=== PATIENT | female | born 1990 | race Caucasian/White ===

== ENCOUNTER → 2016-06-16 | Outpatient (REF) | payer MEDICAID, OTHER ==
[~2016-06-16] MED LIST: ACET500C PO; BISA10SU4 PR; CALC-190 PO; CALCTAB28 PO; CEFD1CAP8 PO; CELE20TA PO; CEPH500C PO; CHLO1.4S2 MT; CITR1SOL PO; CRAN500C2 PO; CYCL10TA PO; DITR1TAB PO; DULC5TAB PO; FLEEENE4 PR; GABA-283 PO; GABA600T PO; IBUP200C PO; KEFL500C7 PO; LEVO25TA5 PO; LORC1TAB PO; LORT1TAB PO; LOVE0.6I2 SC; LOVE0.8I SC; MAALSUS18 PO; MACR100C3 PO; MICR10CA PO; MILKSUS PO; MIRA3350 PO; MIRA33504 PO; MULTTAB63 PO; NAPR220C PO; NORCOTAB PO; NYST100024 TOP; PREN1TAB11 PO; PROT1TAB2 PO; SENO8.6T10 PO; SERO1TAB3 PO; TRAZ150T14 PO; TRAZ50TA4 PO; VALI10TA PO; VITA200016 PO; XARE15TA PO; ZANA4CAP PO; ZOFR20TA PO; [UNRECOGNIZED DRUG - OTHER] PO
== END ==
LOC: M SMT 16:54
PROVIDERS: ATTEND Urology
DX: N39.0 Urinary tract infection, site not specified (principal)

== ENCOUNTER → 2016-08-13 | Outpatient (REF) | payer MEDICAID ==
[2016-08-13 20:15] LABS: YEAST LIKE CELL URINE AUTO SMALL
== END ==
LOC: M SMT 17:02
PROVIDERS: ATTEND Urology
DX: N39.0 Urinary tract infection, site not specified (principal)

== ENCOUNTER → 2016-08-28 | Outpatient (CLI) | payer MEDICAID ==
--- NOTE | 2016-08-28 12:37 | REP ---
MRI LEFT KNEE: TECHNIQUE: Axial proton density fat saturation, sagittal proton density T2 STIR, water excitation, coronal proton density, proton density fat saturation. The menisci are intact. There is no evidence of a meniscal tear. The cruciate and collateral ligaments are intact. The extensor mechanism is intact. There is mild fluid and edema anterior to the patella lateral aspect, which may represent mild prepatellar bursitis. No osteochondral defects are seen. There is normal marrow signal with no bone marrow edema or occult fracture. There is a small joint effusion. There is no evidence of a popliteal cyst. IMPRESSION: No evidence of meniscal tear or ligament tear. Possible mild prepatellar bursitis. Small joint effusion. No occult fracture. Signed by Hardik Ryan MD 08/28/2016 05:19 P
== END ==
LOC: M PLARAD 09:43
PROVIDERS: ATTEND Physician Assistant
DX: M25.562 Pain in left knee (principal)

== ENCOUNTER 2016-10-02 09:38 | Emergency (ER) | payer MEDICAID, SELFPAY ==
[~2016-10-02] VITALS: Ht 162.6 cm; Wt 90.7 kg
[2016-10-02] MEDS ORDERED: XARE20TA PO (09:56)
[2016-10-02] MEDS ORDERED: DITR5TAB PO (09:56)
[2016-10-02] MEDS ORDERED: TOPA50TA7 PO (09:56)
[2016-10-02] MEDS ORDERED: TIZA4CAP3 PO (09:56)
[2016-10-02] MEDS ORDERED: FLUO20CA8 PO (09:56)
[2016-10-02] MEDS ORDERED: ACETAMINOPHEN TAB 650MG DOSE (2X325MG) PO ONE (11:00)
[2016-10-02 12:56] VITALS: BP 122/70
[2016-10-03] MEDS ORDERED: OXYB5TA PO (17:18)
[2016-10-03] MEDS ORDERED: VITMTA PO (17:18)
[2016-10-03] MEDS ORDERED: MAGN400T5 PO (17:18)
[2016-10-03] MEDS ORDERED: ZYRT10TA2 PO (17:18)
[2016-10-03] MEDS ORDERED: LEVO50TA5 PO (17:18)
[2016-10-03] MEDS ORDERED: ACET500T37 PO (17:18)
[2016-10-03] MEDS ORDERED: GABA600T PO (17:18)
== END 2016-10-02 17:06 | disposition home or self-care (01) ==
LOC: EDBD 09:38 → M ED 10:38
DX: R51 Headache (principal); G82.20 Paraplegia, unspecified; E03.9 Hypothyroidism, unspecified; F32.9 Major depressive disorder, single episode, unspecified; M62.830 Muscle spasm of back; Z79.899 Other long term (current) drug therapy; Z79.01 Long term (current) use of anticoagulants; F17.210 Nicotine dependence, cigarettes, uncomplicated; Z86.73 Personal history of transient ischemic attack (TIA), and cerebral infarction without residual deficits; Z86.711 Personal history of pulmonary embolism; Z87.440 Personal history of urinary (tract) infections; Z87.42 Personal history of other diseases of the female genital tract

== ENCOUNTER 2016-10-03 16:14 | Inpatient (IN) | payer MEDICAID, SELFPAY ==
[~2016-10-03 16:14] MED LIST changes: +DITR5TAB PO; +FLUO20CA8 PO; +TIZA4CAP3 PO; +TOPA50TA7 PO; +XARE20TA PO
[2016-10-03] MEDS ORDERED: OXYB5TA PO (17:18)
[2016-10-03] MEDS ORDERED: VITMTA PO (17:18)
[2016-10-03] MEDS ORDERED: GABA600T PO (17:18)
[2016-10-03] MEDS ORDERED: ACET500T37 PO (17:18)
[2016-10-03] MEDS ORDERED: LEVO50TA5 PO (17:18)
[2016-10-03] MEDS ORDERED: MAGN400T5 PO (17:18)
[2016-10-03] MEDS ORDERED: ZYRT10TA2 PO (17:18)
[2016-10-03 17:27] LABS: BASO # 0.1 K/mm3 (0.0-0.2); BASO % 0.8 % (0.0-1.0); EOS # 0.2 K/mm3 (0.0-0.50); EOS % 2.7 % (0.0-3.0); LARGE UNSTAINED CELL # 0.1 K/mm3 (0.0-0.4); LARGE UNSTAINED CELL % 1.3 % (0.0-4.0); LYMPH # 2.6 K/mm3 (1.5-6.5); LYMPH % 27.6 % (24.0-44.0); MEAN CORPUSCULAR HEMOGLOBIN 24.7 pg (27.0-33.0); MEAN CORPUSCULAR HGB CONC 32.1 g/dl (32.0-36.5); MONO # 0.4 K/mm3 (0.0-0.8); MONO % 4.7 % (0.0-5.0); NEUTROPHILS # 5.9 K/mm3 (1.8-7.7); NEUTROPHILS % 62.9 % (36.0-66.0); PLATELET COUNT, AUTOMATED 361 k/mm3 (150-450); RED CELL DISTRIBUTION WIDTH 16.8 % (11.5-14.5); WHITE BLOOD COUNT 9.3 K/mm3 (4.0-10.0)
[2016-10-03 17:54] LABS: ANION GAP 9 MEQ/L (8-16); BLOOD UREA NITROGEN 14 MG/DL (7-18); CALCIUM LEVEL 8.8 MG/DL (8.5-10.1); CARBON DIOXIDE LEVEL 21 MEQ/L (21-32); CHLORIDE LEVEL 110 MEQ/L (98-107); CREATININE FOR GFR 0.63 MG/DL (0.55-1.02); GLOMERULAR FILTRATION RATE > 60.0 (>60); GLUCOSE, FASTING 94 MG/DL (70-105); POTASSIUM SERUM 3.6 MEQ/L (3.5-5.1); SODIUM LEVEL 140 MEQ/L (136-145)
[2016-10-03] MEDS ORDERED: MIRALAX *UNIT DOSE* 17GM PACKET PO PRN (18:45)
[2016-10-03] MEDS ORDERED: ACETAMINOPHEN TAB 650MG DOSE (2X325MG) PO PRN (18:45)
[2016-10-03] MEDS ORDERED: ONDANSETRON 4MG/2ML VIAL (J2405) IV PRN (18:45)
--- NOTE | 2016-10-03 19:14 | HPEPDOC ---
General Date of Admission 10/03/16 Primary Care Physician: LILIA RODRIGUEZ MD Attending Physician: KEVYN AMAYA MD Chief Complaint The patient is a 26-year-old female admitted with a reason for visit of Unable To Care For Self. 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 The patient states that she has been for 3 years and has an 11 month old son with her . 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 However, the patient's from the patient 3 days ago. During this time, the patient states that she has not been able to care for herself. At baseline, the patient states that she transfers with a Susan lift, and is dependent on her for all of her activities of daily living. At this time, the patient denies any acute complaints of fevers, chills, shortness of breath, chest pain, palpitations, abdominal pain, or any nausea/vomiting/diarrhea. The patient will be admitted to the hospitalist service under Dr. Amaya, and a consultation will be placed to [facility] for further delineation of disposition. Home Medications Scheduled Cetirizine HCl (Zyrtec Allergy) 10 Mg Tab, 10 MG PO QHS, (Reported) Diazepam (Valium) 10 Mg Tab, 10 MG PO QHS, (Reported) Fluoxetine Hcl (Fluoxetine) 20 Mg Cap, 20 MG PO DAILY, (Reported) Gabapentin (Gabapentin) 600 Mg Tab, 600 MG PO BID, (Reported) Levothyroxine Sodium (Synthroid) 50 Mcg Tab, 50 MCG PO DAILY, (Reported) Magnesium Oxide (Magnesium Oxide 400) 400 Mg Tab, 400 MG PO QHS, (Reported) Multivitamins *[facility] STOCKED* (Thera M Plus *[facility] STOCKED*) 1 Tab Tab, 1 TAB PO DAILY, (Reported) Oxybutynin Chloride (Oxybutynin Chloride) 5 Mg Tab, 5 MG PO BID, (Reported) Rivaroxaban (Xarelto) 20 Mg Tab, 20 MG PO QHS, (Reported) Tizanidine Hydrochloride (Tizanidine HCl) 4 Mg Cap, 4 MG PO BID, (Reported) Topiramate (Topamax) 50 Mg Tab, 75 MG PO QHS, (Reported) Scheduled PRN Acetaminophen (Acetaminophen Extra Stren) 500 Mg Tab, 500 MG PO Q4H PRN for PAIN , (Reported) Polyethylene Glycol (Miralax) 1 Pow Pow, 17 GM PO DAILY PRN for CONSTIPATION, ( Reported) Allergies Coded Allergies: Gadobenate (Verified Allergy, Severe, shortness of breath, 10/03/16) Nitrofurantoin (Verified Allergy, Unknown, MACROBID, 10/03/16) Past Medical History Medical History As noted in HPI. Surgical History Tonsillectomy in 2012, PEG tube insertion and tracheostomy in 2011 with subsequent reversal, suprapubic catheter insertion Family History Significant Family History: No pertinent family hx Social History * Smoker: Denies Alcohol: Denies Drugs: denies Review of Symptoms Other systems 10 point review of systems negative unless otherwise specified in HPI. Physical Examination General Exam: Positive: Alert, Cooperative, No Acute Distress ENT Exam: Positive: Atraumatic, Mucous membr. moist/pink Neck Exam: Positive: Other (previous tracheostomy scar noted in the midline of the neck), Negative: JVD Chest Exam: Positive: Clear to auscultation, Normal air movement Heart Exam: Positive: Rate Normal, Normal S1, Normal S2 Telemetry: Positive: Sinus Abdomen Exam: Positive: Soft, Other (+ suprapubic catheter), Negative: Tenderness Extremity Exam: Negative: Tenderness, Swelling Neuro Exam: Positive: Other (bilateral upper extremities with intact sensation and strength. patient with intact sensation in the lower extremities bilaterally. However, patient has 0 out of 5 strength upon flexion/extension of the hip, knee, and ankle joints. The patient is able to wiggle her toes slightly on command) Psych Exam: Positive: Oriented x 3 Vital Signs Vital Signs Date Time Temp Pulse Resp B/P (MAP) Pulse Ox O2 Delivery O2 Flow Rate FiO2 10/03/16 16:47 10/03/16 16:25 98.3 76 18 96 Room Air Laboratory Data Labs 24H Laboratory Tests 2 10/03/16 17:13: White Blood Count 9.3, Red Blood Count 5.49H, Hemoglobin 13.5, Hematocrit 42.2, Mean Corpuscular Volume 77.0L, Mean Corpuscular Hemoglobin 24.7L, Mean Corpuscular Hemoglobin Concent 32.1, Red Cell Distribution Width 16.8H, Platelet Count 361, Neutrophils (%) (Auto) 62.9, Lymphocytes (%) (Auto) 27.6, Monocytes (%) (Auto) 4.7, Eosinophils (%) (Auto) 2.7, Basophils (%) (Auto) 0.8, Neutrophils # (Auto) 5.9, Lymphocytes # (Auto) 2.6, Monocytes # (Auto) 0.4, Eosinophils # (Auto) 0.2, Basophils # (Auto) 0.1, Large Unclassified Cells % 1.3 , Large Unclassified Cells # 0.1, Anion Gap 9, Glomerular Filtration Rate > 60.0 , Blood Urea Nitrogen 14, Creatinine 0.63, Sodium Level 140, Potassium Level 3.6 , Chloride Level 110H, Carbon Dioxide Level 21, Calcium Level 8.8 CBC/BMP Laboratory Tests 10/03/16 17:13 Red Blood Count 5.49 H, Mean Corpuscular Volume 77.0 L, Mean Corpuscular Hemoglobin 24.7 L, Mean Corpuscular Hemoglobin Concent 32.1, Red Cell Distribution Width 16.8 H, Neutrophils (%) (Auto) 62.9, Lymphocytes (%) (Auto) 27.6, Monocytes (%) (Auto) 4.7, Eosinophils (%) (Auto) 2.7, Basophils (%) (Auto ) 0.8, Neutrophils # (Auto) 5.9, Lymphocytes # (Auto) 2.6, Monocytes # (Auto) 0.4, Eosinophils # (Auto) 0.2, Basophils # (Auto) 0.1, Calcium Level 8.8 Plan / VTE VTE Prophylaxis Ordered?: Yes Plan Plan Social admission for possible placement The patient states that she has been unable to take care of herself since being from her a few days ago. Physical therapy consulted I have placed a consultation for PFS for further delineation of disposition History of Sagittal Sinus Thrombosis in 2011 Patient with residual lower extremity weakness, status post tracheostomy and PEG tube placement with subsequent reversal in 2011 The patient has had an outpatient and inpatient (Here in 2014) work up for hypercoagulable disorders but this has come up negative according to the patient and our records here On Xarelto for Anticoagulation Hx of Pulmonary Embolism/DVT in 2015 on Xarelto Urinary Retention s/p Suprapubic Mc Catheter Follows with Dr. Orozco of Urology as an outpatient, has qMonthly catheter changes--last changed approximately 10 days ago according to the patient Reports no functional issues with the catheter at this time Bipolar disorder, stable Cont Fluoxetine Hypothyroidism Continue supplementation Obesity Complicating medical care Constipation Cont Miralax prn daily DVT prophylaxis Already on anticoagulation The patient will be admitted under the service of Dr. Amaya, who will begin to follow the patient on 10/04/16 @ 7 am. KAE SANTILLAN MD Oct 03, 2016 19:14
[2016-10-03 19:47] VITALS: BP 109/73
[2016-10-03] MEDS: diazePAM 10 MG TAB PO SCH (20:54)
[2016-10-03] MEDS: CETIRIZINE (ZyrTEC) 10 MG TAB PO SCH (20:54)
[2016-10-03] MEDS: RIVAROXABAN 20 MG TAB (XARELTO) PO SCH (20:55)
[2016-10-03] MEDS: MAGNESIUM OXIDE 400 MG TAB (MAG-OX) PO SCH (20:55)
[2016-10-03] MEDS: TOPIRAMATE (TopAMAX) 25 MG TAB PO SCH (20:55)
[2016-10-03] MEDS: oxyBUTYnin 5 MG TAB PO SCH (20:55)
[2016-10-03] MEDS: tiZANidine 4 MG TAB PO SCH (20:55)
[2016-10-03] MEDS: GABAPENTIN 300 MG CAP PO SCH (20:55)
[2016-10-04] MEDS: LEVOTHYROXINE 50MCG TABLET (0.05MG) PO SCH (05:35)
[2016-10-04 06:00] VITALS: BP 99/64
[2016-10-04] MEDS: tiZANidine 4 MG TAB PO SCH ×2 (09:45→21:23)
[2016-10-04] MEDS: GABAPENTIN 300 MG CAP PO SCH ×2 (09:45→21:23)
[2016-10-04] MEDS: oxyBUTYnin 5 MG TAB PO SCH ×2 (09:45→21:23)
[2016-10-04] MEDS: FLUoxetine 20 MG CAP PO SCH (09:45)
[2016-10-04] MEDS: MULTIVITAMINS/MINERALS THERAP 1 TAB PO SCH (09:45)
--- NOTE | 2016-10-04 09:54 | IPNPDOC ---
Date Seen The patient was seen on 10/04/16. Progress Note SUBJECTIVE: Patient does not offer any complaints today. She is stoic about her social situation. She is from [place] and has all her family there and would eventually like to move there. However right now wants to stay here as there will be issues with custody for her infant who is now with her in [place]. Her has family in [facility]. PHYSICAL EXAMINATION: VITAL SIGNS: Please see below. GENERAL: Patient awake , alert oriented times three, no acute distress. HEENT: normo cephalic, atraumatic, moist mucous membranes, anicteric eyes. CARDIOVASCULAR: S1, S2 regular, rate normal , no rub , murmur or gallop. . RESPIRATORY: clear to auscultation , bilateral symmetrical vesicular breath sounds. ABDOMINAL: obese, soft nontender, bowel sounds normal. EXTREMITIES: no edema. NEUROLOGICAL: paraplegia LABORATORY DATA: Please see below. MICROBIOLOGY: Please see below. ASSESSMENT AND PLAN: Social admission for possible placement Patient is paraplegic and wheelchair bound , left her alone in their house 4 days ago and took her car and their son. It was her only means of transportation. He was her primary caregiver and there is no family around here to help. She cant manage by herself alone so will possibly need placement or home services. will consult PFS. History of Sagittal Sinus Thrombosis in 2011 Patient with paraplegia and suprapubic catheter. History of tracheostomy and PEG tube placement with subsequent reversal in 2011 The patient has had an outpatient and inpatient (Here in 2014) work up for hypercoagulable disorders but this has come up negative according to the patient and our records here On Xarelto for Anticoagulation Hx of Pulmonary Embolism/DVT in 2014 on Xarelto Urinary Retention s/p Suprapubic Mc Catheter Follows with Dr. Orozco of Urology as an outpatient, has qMonthly catheter changes--last changed approximately 10 days ago according to the patient Reports no functional issues with the catheter at this time Bipolar disorder, stable Cont Fluoxetine Hypothyroidism Continue supplementation Obesity Complicating medical care Constipation Cont Miralax prn daily DVT prophylaxis Already on anticoagulation VS, I&O, 24H, Fishbone Vital Signs/I&O Vital Signs Date Time Temp Pulse Resp B/P (MAP) Pulse Ox O2 Delivery O2 Flow Rate FiO2 10/04/16 06:00 97.2 62 18 99/64 (76) 95 Room Air I&O- Last 24 Hours up to 6 AM 10/04/16 06:00 Intake Total 0 ml Output Total 875 ml Balance -875 ml Laboratory Data 24H LABS Laboratory Tests 2 10/03/16 17:13: White Blood Count 9.3, Red Blood Count 5.49H, Hemoglobin 13.5, Hematocrit 42.2, Mean Corpuscular Volume 77.0L, Mean Corpuscular Hemoglobin 24.7L, Mean Corpuscular Hemoglobin Concent 32.1, Red Cell Distribution Width 16.8H, Platelet Count 361, Neutrophils (%) (Auto) 62.9, Lymphocytes (%) (Auto) 27.6, Monocytes (%) (Auto) 4.7, Eosinophils (%) (Auto) 2.7, Basophils (%) (Auto) 0.8, Neutrophils # (Auto) 5.9, Lymphocytes # (Auto) 2.6, Monocytes # (Auto) 0.4, Eosinophils # (Auto) 0.2, Basophils # (Auto) 0.1, Large Unclassified Cells % 1.3 , Large Unclassified Cells # 0.1, Anion Gap 9, Glomerular Filtration Rate > 60.0 , Blood Urea Nitrogen 14, Creatinine 0.63, Sodium Level 140, Potassium Level 3.6 , Chloride Level 110H, Carbon Dioxide Level 21, Calcium Level 8.8 CBC/BMP Laboratory Tests 10/03/16 17:13 Red Blood Count 5.49 H, Mean Corpuscular Volume 77.0 L, Mean Corpuscular Hemoglobin 24.7 L, Mean Corpuscular Hemoglobin Concent 32.1, Red Cell Distribution Width 16.8 H, Neutrophils (%) (Auto) 62.9, Lymphocytes (%) (Auto) 27.6, Monocytes (%) (Auto) 4.7, Eosinophils (%) (Auto) 2.7, Basophils (%) (Auto ) 0.8, Neutrophils # (Auto) 5.9, Lymphocytes # (Auto) 2.6, Monocytes # (Auto) 0.4, Eosinophils # (Auto) 0.2, Basophils # (Auto) 0.1, Calcium Level 8.8 KEVYN SCHAFFER MD Oct 04, 2016 09:54
[2016-10-04 14:00] VITALS: BP 106/67
[2016-10-04] MEDS: IBUPROFEN 800 MG TAB PO PRN (16:42)
[2016-10-04] MEDS: LIDOCAINE 5% (LIDODERM) PATCH TD SCH (16:43)
[2016-10-04] MEDS: **NOTE PATIENT COMMENT** MISC XX SCH (21:00)
[2016-10-04] MEDS: diazePAM 10 MG TAB PO SCH (21:23)
[2016-10-04] MEDS: RIVAROXABAN 20 MG TAB (XARELTO) PO SCH (21:23)
[2016-10-04] MEDS: TOPIRAMATE (TopAMAX) 25 MG TAB PO SCH (21:23)
[2016-10-04] MEDS: CETIRIZINE (ZyrTEC) 10 MG TAB PO SCH (21:23)
[2016-10-04] MEDS: MAGNESIUM OXIDE 400 MG TAB (MAG-OX) PO SCH (21:23)
[2016-10-04 21:36] VITALS: BP 102/58
[2016-10-05] MEDS: LEVOTHYROXINE 50MCG TABLET (0.05MG) PO SCH (05:39)
[2016-10-05 06:00] VITALS: BP 93/60
[2016-10-05] MEDS: GABAPENTIN 300 MG CAP PO SCH ×2 (08:23→22:43)
[2016-10-05] MEDS: MULTIVITAMINS/MINERALS THERAP 1 TAB PO SCH (08:23)
[2016-10-05] MEDS: FLUoxetine 20 MG CAP PO SCH (08:23)
[2016-10-05] MEDS: tiZANidine 4 MG TAB PO SCH ×2 (08:23→22:43)
[2016-10-05] MEDS: oxyBUTYnin 5 MG TAB PO SCH ×2 (08:23→22:43)
[2016-10-05] MEDS: LIDOCAINE 5% (LIDODERM) PATCH TD SCH (08:24)
[2016-10-05 12:59] LABS: MEAN CORPUSCULAR HEMOGLOBIN 25.3 pg (27.0-33.0); MEAN CORPUSCULAR HGB CONC 32.7 g/dl (32.0-36.5); MEAN CORPUSCULAR VOLUME 77.2 fl (80.0-96.0); RED CELL DISTRIBUTION WIDTH 16.6 % (11.5-14.5); WHITE BLOOD COUNT 8.6 K/mm3 (4.0-10.0)
[2016-10-05 14:00] VITALS: BP 113/69
[2016-10-05 14:33] LABS: ANION GAP 9 MEQ/L (8-16); BLOOD UREA NITROGEN 13 MG/DL (7-18); CALCIUM LEVEL 9.1 MG/DL (8.5-10.1); CARBON DIOXIDE LEVEL 22 MEQ/L (21-32); CHLORIDE LEVEL 110 MEQ/L (98-107); CREATININE FOR GFR 0.66 MG/DL (0.55-1.02); GLOMERULAR FILTRATION RATE > 60.0 (>60); GLUCOSE, FASTING 85 MG/DL (70-105); POTASSIUM SERUM 3.9 MEQ/L (3.5-5.1); SODIUM LEVEL 141 MEQ/L (136-145)
[2016-10-05] MEDS: IBUPROFEN 800 MG TAB PO PRN (17:10)
[2016-10-05] MEDS: **NOTE PATIENT COMMENT** MISC XX SCH (21:00)
[2016-10-05] MEDS: TOPIRAMATE (TopAMAX) 25 MG TAB PO SCH (22:43)
[2016-10-05] MEDS: CETIRIZINE (ZyrTEC) 10 MG TAB PO SCH (22:43)
[2016-10-05] MEDS: RIVAROXABAN 20 MG TAB (XARELTO) PO SCH (22:43)
[2016-10-05] MEDS: diazePAM 10 MG TAB PO SCH (22:43)
[2016-10-05] MEDS: MAGNESIUM OXIDE 400 MG TAB (MAG-OX) PO SCH (22:43)
[2016-10-06] MEDS: LEVOTHYROXINE 50MCG TABLET (0.05MG) PO SCH (05:36)
[2016-10-06] MEDS: GABAPENTIN 300 MG CAP PO SCH ×2 (08:25→20:29)
[2016-10-06] MEDS: FLUoxetine 20 MG CAP PO SCH (08:26)
[2016-10-06] MEDS: oxyBUTYnin 5 MG TAB PO SCH ×2 (08:26→20:29)
[2016-10-06] MEDS: MULTIVITAMINS/MINERALS THERAP 1 TAB PO SCH (08:26)
[2016-10-06] MEDS: tiZANidine 4 MG TAB PO SCH ×2 (08:26→20:28)
[2016-10-06] MEDS: LIDOCAINE 5% (LIDODERM) PATCH TD SCH (08:27)
[2016-10-06] MEDS ORDERED: LIDO5TD TD (16:55)
[2016-10-06] MEDS: diazePAM 10 MG TAB PO SCH (20:28)
[2016-10-06] MEDS: CETIRIZINE (ZyrTEC) 10 MG TAB PO SCH (20:28)
[2016-10-06] MEDS: TOPIRAMATE (TopAMAX) 25 MG TAB PO SCH (20:29)
[2016-10-06] MEDS: RIVAROXABAN 20 MG TAB (XARELTO) PO SCH (20:29)
[2016-10-06] MEDS: MAGNESIUM OXIDE 400 MG TAB (MAG-OX) PO SCH (20:29)
[2016-10-06] MEDS: **NOTE PATIENT COMMENT** MISC XX SCH (20:32)
[2016-10-07] MEDS: LEVOTHYROXINE 50MCG TABLET (0.05MG) PO SCH (05:46)
[2016-10-07 06:00] VITALS: BP 117/63
[2016-10-07] MEDS: tiZANidine 4 MG TAB PO SCH (08:38)
[2016-10-07] MEDS: GABAPENTIN 300 MG CAP PO SCH (08:38)
[2016-10-07] MEDS: MULTIVITAMINS/MINERALS THERAP 1 TAB PO SCH (08:39)
[2016-10-07] MEDS: FLUoxetine 20 MG CAP PO SCH (08:39)
[2016-10-07] MEDS: oxyBUTYnin 5 MG TAB PO SCH (08:39)
[2016-10-07] MEDS: LIDOCAINE 5% (LIDODERM) PATCH TD SCH (08:39)
--- NOTE | 2016-10-09 12:04 | DSES ---
DATE OF ADMISSION: 10/03/2016 DATE OF DISCHARGE: 10/07/2016 PRIMARY CARE PROVIDER: Claire Murcia. DISCHARGE DIAGNOSES: 1. Paraplegia, wheelchair bound, unable to take care of self at home. 2. Poor social situation. 3. History of sagittal sinus thrombosis in 2011, resulting in paraplegia. 4. Chronic urinary retention, now has a suprapubic catheter. 5. History of pulmonary embolism and deep venous thrombosis (DVT) in 2014, on Xarelto. 6. Bipolar disorder. 7. Hypothyroidism. 8. Obesity. 9. Chronic constipation. DISCHARGE MEDICATIONS: - Tylenol 500 mg by mouth every four hours as needed for pain - cetirizine 10 mg at bedtime - diazepam 10 mg at bedtime - fluoxetine 20 mg by mouth daily - gabapentin 600 mg by mouth twice a day - Synthroid 50 mcg by mouth daily - magnesium oxide 400 mg at bedtime - multivitamin one tablet by mouth daily - oxybutynin 5 mg by mouth twice a day - MiraLAX one packet as needed for constipation - Xarelto 20 mg at bedtime - tizanidine 4 mg by mouth twice a day - Topamax 75 mg by mouth at bedtime - lidocaine patch one patch daily on the knee HOSPITAL COURSE: This is a 26-year-old female who has paraplegia and is wheelchair bound due to sagittal sinus thrombosis in 2011, whose who was the primary vp care management, recently left her and took her [id number] son with him, leaving the patient alone at home. Also taking the patient's car with him. The patient was home bound without any means of transportation and unable to take care of herself, so presented to the hospital for her poor social situation. The patient is originally from [place] and her family lives there. She does not have any social support system in this area, so the patient was admitted to the hospital for placement in long-term care. The patient did not have any acute events during the hospitalization. The patient's blood work was all within normal limits. The patient was seen by patient and family services and subsequently the patient was accepted in a long-term care facility in [place]. On the day of discharge, the patient's vitals were stable. The patient did not have any complaints and was functioning at her baseline. PHYSICAL EXAMINATION: VITAL SIGNS: Temperature 97.9, pulse 72, respiratory rate 18, blood pressure 117/63, pulse oximetry 95% on room air. GENERAL: Patient awake, alert, oriented times three. Lying down in bed in no acute distress. HEENT: Normocephalic, atraumatic. Moist mucous membranes. Anicteric eyes. CHEST: Clear to auscultation. CARDIOVASCULAR: S1, S2. Regular. No rub, murmur or gallop. ABDOMEN: Obese, soft, nontender. Bowel sounds present. There is a suprapubic catheter present. EXTREMITIES: No edema. NEUROLOGIC: There is paraplegia present. LABORATORY DATA: WBC 8.6, hemoglobin 12.9, platelets 312. Sodium 141, potassium 3.9, chloride 110, bicarbonate 22, BUN 13, creatinine 0.6, glucose 85, calcium 9.1. DISPOSITION: The patient is discharged to [facility] in [place]. DISCHARGE INSTRUCTIONS: Patient to followup with the doctor at the skilled nursing. Regular diet. Activity as tolerated.
== END 2016-10-07 12:32 | DRG 40 ==
LOC: M ED 17:06 → EEVIPCON 18:34 → M MSPAV 18:34 → M ED 19:47 → M MSPAV 10-05 14:50
PROVIDERS: ADMIT Internal Medicine; ATTEND Internal Medicine Nephrology
DX: G82.20 Paraplegia, unspecified (principal); E03.9 Hypothyroidism, unspecified; E66.9 Obesity, unspecified; K59.09 Other constipation; F31.9 Bipolar disorder, unspecified; R33.9 Retention of urine, unspecified; Z96.0 Presence of urogenital implants; Z79.01 Long term (current) use of anticoagulants; Z79.899 Other long term (current) drug therapy; Z99.3 Dependence on wheelchair; Z63.8 Other specified problems related to primary support group; Z88.8 Allergy status to other drugs, medicaments and biological substances; Z86.718 Personal history of other venous thrombosis and embolism; Z86.711 Personal history of pulmonary embolism